=== PATIENT | female | born 1990 | race American Indian/Alaskan Native ===

== ENCOUNTER 2020-12-04 18:24 | Emergency (ER) | payer MEDICAID ==
--- NOTE | 2020-12-04 18:35 | Event Note ---
ED Screening Note ED Screening Note: lmp 11/25 known vag bleed today This initial assessment/diagnostic orders/clinical plan/treatment(s) is/are subject to change based on patients health status, clinical progression and re- assessment by fellow clinical providers in the ED. Further treatment and workup at subsequent clinical providers discretion. Patient/guardian urged not to elope from the ED as their condition may be serious if not clinically assessed and managed. Initial orders include: harish cabral
[2020-12-04 18:36] VITALS: BP 107/72
[2020-12-04 19:09] LABS: Basophils # (Auto) 0.1 K/mm3 (0.0-0.1); Basophils % (Auto) 0.8 % (0.0-1.8); Eosinophils % (Auto) 0.3 % (0.0-4.3); Hematocrit 35.3 % (30.3-42.9); Hemoglobin 12.4 gm/dl (10.1-14.3); Lymphocytes # (Auto) 2.2 K/mm3 (1.2-5.4); Lymphocytes % (Auto) 32.2 % (13.4-35.0); Mean Corpuscular HGB Conc 35 % (30-34); Mean Corpuscular Volume 90 fl (79-97); Monocytes # (Auto) 0.5 K/mm3 (0.0-0.8); Monocytes % (Auto) 7.9 % (0.0-7.3); Platelet Count 274 K/mm3 (140-440); Red Blood Count 3.94 M/mm3 (3.65-5.03); Red Cell Distribution Width 12.3 % (13.2-15.2)
[2020-12-04 19:25] LABS: Blood Urea Nitrogen 10 mg/dL (7-17); Calcium 9.5 mg/dL (8.4-10.2); Hemolysis Index 6
[2020-12-04 19:41] LABS: BUN/Creatinine Ratio 20
--- NOTE | 2020-12-04 20:36 | Emergency Department Report ---
ED Female HPI - General Chief complaint: Vaginal Bleeding Stated complaint: VAGINAL BLEED Time Seen by Provider: 12/04/20 18:42 Source: patient Mode of arrival: Ambulatory Limitations: No Limitations - History of Present Illness Initial comments: 30 YO AA COMES TO ER WITH VAG BLEEDING IN PREG. LMP 10/31. BLEEDING IS SPOTTING ONLY. NO DYSURIA NO ABD PAIN OR BACK PAIN. NO FEVER OR CHILLS G1 PT IS AMBULATORY AND NON ILL APPEARING ON EXAM MD Complaint: vaginal bleeding -: Sudden Radiation: non-radiating Severity: mild Quality: cramping Consistency: intermittent Improves with: none Worsens with: none Are you Now?: Yes Associated Symptoms: vaginal bleeding - Related Data Sexually active: Yes Allergies Allergy/AdvReac Type Severity Reaction Status Date / Time No Known Allergies Allergy Unverified 12/04/20 18:33 ED Review of Systems ROS: Stated complaint: VAGINAL BLEED Other details as noted in HPI Comment: All other systems reviewed and negative ED Past Medical Hx - Past Medical History Previous Medical History?: No - Surgical History Past Surgical History?: No - Family History Family history: no significant - Social History Smoking Status: Never Smoker Substance Use Type: None ED Physical Exam - General Limitations: No Limitations General appearance: alert, in no apparent distress - Head Head exam: Present: atraumatic, normocephalic - Eye Eye exam: Present: normal appearance - ENT ENT exam: Present: mucous membranes moist - Neck Neck exam: Present: normal inspection - Respiratory Respiratory exam: Present: normal lung sounds bilaterally. Absent: respiratory distress - Cardiovascular Cardiovascular Exam: Present: regular rate, normal rhythm. Absent: systolic murmur, diastolic murmur, rubs, gallop - GI/Abdominal GI/Abdominal exam: Present: soft, normal bowel sounds - Extremities Exam Extremities exam: Present: normal inspection - Back Exam Back exam: Present: normal inspection - Neurological Exam Neurological exam: Present: alert, oriented X3 - Psychiatric Psychiatric exam: Present: normal affect, normal mood - Skin Skin exam: Present: warm, dry, intact, normal color. Absent: rash ED Course Vital Signs 12/04/20 18:34 Temperature 98.2 F Pulse Rate 102 H Respiratory 22 Rate Blood Pressure 107/72 O2 Sat by Pulse 100 Oximetry ED Medical Decision Making - Lab Data Result diagrams: 12/04/20 18:56 12/04/20 18:56 - Radiology Data Radiology results: report reviewed, image reviewed - Medical Decision Making Lab Results 12/04/20 12/04/20 12/04/20 Range/Units 18:56 18:56 18:56 WBC 6.7 (4.5-11.0) K/mm3 RBC 3.94 (3.65-5.03) M/mm3 Hgb 12.4 (10.1-14.3) gm/dl Hct 35.3 (30.3-42.9) % MCV 90 (79-97) fl MCH 31 (28-32) pg MCHC 35 H (30-34) % RDW 12.3 L (13.2-15.2) % Plt Count 274 (140-440) K/mm3 Lymph % (Auto) 32.2 (13.4-35.0) % Wilkin % (Auto) 7.9 H (0.0-7.3) % Eos % (Auto) 0.3 (0.0-4.3) % Baso % (Auto) 0.8 (0.0-1.8) % Lymph # (Auto) 2.2 (1.2-5.4) K/mm3 Wilkin # (Auto) 0.5 (0.0-0.8) K/mm3 Eos # (Auto) 0.0 (0.0-0.4) K/mm3 Baso # (Auto) 0.1 (0.0-0.1) K/mm3 Seg Neutrophils % 58.8 (40.0-70.0) % Seg Neutrophils # 4.0 (1.8-7.7) K/mm3 Sodium 135 L (137-145) mmol/L Potassium 3.3 L (3.6-5.0) mmol/L Chloride 101.0 (98-107) mmol/L Carbon Dioxide 24 (22-30) mmol/L Anion Gap 13 mmol/L BUN 10 (7-17) mg/dL Creatinine 0.5 L (0.6-1.2) mg/dL Estimated GFR > 60 ml/min BUN/Creatinine Ratio 20 % Glucose 78 (65-100) mg/dL Calcium 9.5 (8.4-10.2) mg/dL HCG, Quant 85935 H (0-4) mIU/mL Blood Type Ord Rhogam Gestat Weeks WEEKS 12/04/20 Range/Units 18:56 WBC (4.5-11.0) K/mm3 RBC (3.65-5.03) M/mm3 Hgb (10.1-14.3) gm/dl Hct (30.3-42.9) % MCV (79-97) fl MCH (28-32) pg MCHC (30-34) % RDW (13.2-15.2) % Plt Count (140-440) K/mm3 Lymph % (Auto) (13.4-35.0) % Wilkin % (Auto) (0.0-7.3) % Eos % (Auto) (0.0-4.3) % Baso % (Auto) (0.0-1.8) % Lymph # (Auto) (1.2-5.4) K/mm3 Wilkin # (Auto) (0.0-0.8) K/mm3 Eos # (Auto) (0.0-0.4) K/mm3 Baso # (Auto) (0.0-0.1) K/mm3 Seg Neutrophils % (40.0-70.0) % Seg Neutrophils # (1.8-7.7) K/mm3 Sodium (137-145) mmol/L Potassium (3.6-5.0) mmol/L Chloride (98-107) mmol/L Carbon Dioxide (22-30) mmol/L Anion Gap mmol/L BUN (7-17) mg/dL Creatinine (0.6-1.2) mg/dL Estimated GFR ml/min BUN/Creatinine Ratio % Glucose (65-100) mg/dL Calcium (8.4-10.2) mg/dL HCG, Quant (0-4) mIU/mL Blood Type O POSITIVE Ord Rhogam Gestat Weeks Rh pos WEEKS Vital Signs 12/04/20 18:34 Temperature 98.2 F Pulse Rate 102 H Respiratory 22 Rate Blood Pressure 107/72 O2 Sat by Pulse 100 Oximetry LABS NOTED HCG NOTED US NOTED RH POS PT BEING DC HOME WITH D/C PLAN OF CARE INCLUDING OBGYN FOLLOW UP FOR INTERVAL LABS/ULTRASOUND. PT VERBALIZES UNDERSTANDING OF PLAN OF CARE. - Differential Diagnosis RO AB Critical care attestation.: If time is entered above; I have spent that time in minutes in the direct care of this critically ill patient, excluding procedure time. ED Disposition Clinical Impression: Vaginal bleeding affecting early Disposition: DC-01 TO HOME OR SELFCARE Is pt being admited?: No Does the pt Need Aspirin: No Condition: Stable Instructions: Vaginal Bleeding During , First Trimester Additional Instructions: PELVIC REST TYLENOL FOR PAIN FOLLOW UP WITH OBGYN RYAN REFERRAL BELOW Referrals: PAUL HAWTHORNE MD [Staff Physician] - 3-5 Days RIGO MCCLELLAND MD [Staff Physician] - 3-5 Days Forms: Work/School Release Form(ED) Time of Disposition: 20:35
[2020-12-04 20:42] LABS: Bacteria,Urine 1+ /HPF (Negative); Mucus,Urine 2+ /HPF
[2020-12-04 20:55] LABS: Bilirubin,Urine NEG (Negative); Blood,Urine LG (Negative); Color,Urine Yellow (Yellow); Protein,Urine <15 mg/dL mg/dL (Negative); Urobilinogen,Urine < 2.0 mg/dL (<2.0)
--- NOTE | 2020-12-04 21:16 | Ultrasound Report ---
ULTRASOUND OBSTETRIC INDICATION / CLINICAL INFORMATION: vag bleed in preg. Clinical Gestational Age (GA): 5.5 weeks.days TECHNIQUE: Transabdominal and Transvaginal. COMPARISON: None available. FINDINGS: GESTATIONAL SAC: Well-defined oval shape and intrauterine in location. The gestational sac diameter m easures 1.4 cm, corresponding to a gestational age of 6 weeks, 2 days. YOLK SAC: No significant abnormality. EMBRYO/FETUS: No significant abnormality. - Christine-Rump Length = 1.8 cm = 8.2 weeks.days - Heart Rate, beats per minute (if present) = 170 UTERUS: The uterus measures 8.5 x 5.7 x 6.0 cm and is normal in echogenicity. MATERNAL ADNEXA: No significant abnormality. Normal Doppler flow seen to both ovaries. There is a 1.6 cm anechoic cyst within the right ovary, likely reflecting a corpus luteal cyst. FREE FLUID: None. ADDITIONAL FINDINGS: None. IMPRESSION: 1. Single, living intrauterine with estimated sonographic age between 6.1 and 8.2 weeks.day s based on gestational sac and crown-rump length measurements. 2. Corpus luteal cyst within the right ovary. Signer Name: Bharat Sandoval MD Signed: 12/04/2020 9:11 PM Workstation Name: [id number]
--- NOTE | 2020-12-04 21:16 | Ultrasound Report ---
ULTRASOUND OBSTETRIC INDICATION / CLINICAL INFORMATION: vag bleed in preg. Clinical Gestational Age (GA): 5.5 weeks.days TECHNIQUE: Transabdominal and Transvaginal. COMPARISON: None available. FINDINGS: GESTATIONAL SAC: Well-defined oval shape and intrauterine in location. The gestational sac diameter m easures 1.4 cm, corresponding to a gestational age of 6 weeks, 2 days. YOLK SAC: No significant abnormality. EMBRYO/FETUS: No significant abnormality. - Spry-Rump Length = 1.8 cm = 8.2 weeks.days - Heart Rate, beats per minute (if present) = 170 UTERUS: The uterus measures 8.5 x 5.7 x 6.0 cm and is normal in echogenicity. MATERNAL ADNEXA: No significant abnormality. Normal Doppler flow seen to both ovaries. There is a 1.6 cm anechoic cyst within the right ovary, likely reflecting a corpus luteal cyst. FREE FLUID: None. ADDITIONAL FINDINGS: None. IMPRESSION: 1. Single, living intrauterine with estimated sonographic age between 6.1 and 8.2 weeks.day s based on gestational sac and crown-rump length measurements. 2. Corpus luteal cyst within the right ovary. Signer Name: Bharat Sandoval MD Signed: 12/04/2020 9:11 PM Workstation Name: [id number]
== END 2020-12-04 20:45 | disposition home or self-care (01) ==
LOC: ED 18:24
DX: O20.8 Other hemorrhage in early pregnancy (principal); Z3A.00 Weeks of gestation of pregnancy not specified
CPT/HCPCS: 36415; 76801; 76817; 80048; 81001; 84702; 85025; 86900; 86901